=== PATIENT | female | born 1955 | race Caucasian/White ===

== ENCOUNTER 2016-08-10 11:10 | Emergency (ER) | payer OTHER ==
[~2016-08-10] VITALS: Ht 175.3 cm; Wt 113.6 kg
[~2016-08-10 11:10] MED LIST: ASPI1TAB69 PO; ATEN50TA PO; ATOR40TA16 PO; HYDR12.57 PO; LISI40TA PO; RANI150C PO
[2016-08-10 11:40] VITALS: BP 141/81; PULSE 65; RESP 16; TEMP 98.7; O2SAT 96
--- NOTE | 2016-08-10 12:36 | PD ---
HPI Chief Complaint: Fall Time Seen by Provider: 12:35 Travel History International Travel<30 days: No Contact w/Intl Traveler<30days: No Traveled to known affect area: No History of Present Illness HPI 60-year-old female presents to the emergency Department with complaint of right knee pain and left ankle pain after tripping over a heightened piece of cement 6 days ago and falling. She says she twisted her left ankle and landed on her right knee. Denies hitting her head or loss of consciousness. Denies neck pain or back pain. Denies anticoagulants. Denies nausea, vomiting. Denies fever, chills. Has been icing, elevating, and using crutches for support. Woke up this morning with a burning sensation in her left ankle. Pain is aggravated with palpation, walking to both the knee and ankle. Took some Advil few days ago with minimal relief of pain. Denies paresthesias, loss of sensation to bilateral lower extremities. Reports decreased range of motion of both the knee and ankle secondary to pain and swelling. Denies allergies. History of hypertension. No other modifying factors or associated signs and symptoms. PFSH Past Medical History Arthritis: Yes (in hands) Asthma: No Autoimmune Disease: No Blood Disorders: No Heart Rhythm Problems: Yes (LBBB) Cancer: No Cardiovascular Problems: Yes High Cholesterol: Yes Chest Pain: Yes Congestive Heart Failure: No COPD: No Cerebrovascular Accident: No Endocrine: No Genitourinary: No Headaches: Yes Hypertension: Yes Immune Disorder: No Musculoskeletal: No Neurologic: Yes Psychiatric: No Reproductive: No Respiratory: Yes (pneumonia) Immunizations Current: Yes Migraines: Yes Tetanus Vaccination: < 5 Years Influenza Vaccination: No ?: Not Menopausal: Yes Past Surgical History Abdominal Surgery: No Body Medical Devices: TITANIUM STRAPS IN HEAD Cardiac Surgery: No Ear Surgery: No Endocrine Surgery: No Eye Surgery: No Genitourinary Surgery: No Gynecologic Surgery: No Neurologic Surgery: Yes (craniotomy 2004 menigioma ) Oral Surgery: No Pacemaker: No Thoracic Surgery: No Tonsillectomy: Yes Other Surgery: Yes (CAS BREAST BIOPSIES) Social History Alcohol Use: No Tobacco Use: No Substance Use: No Allergies-Medications (Allergen,Severity, Reaction): Coded Allergies: No Known Allergies (Unverified , 08/10/16) Reported Meds & Prescriptions Reported Meds & Active Scripts Active Ibuprofen 800 Mg Tab 800 Mg PO Q6HR PRN Lisinopril 40 Mg Tab 40 Mg PO DAILY Reported Aspirin 81 Mg Tabdr 81 Mg PO DAILY Hydrochlorothiazide 12.5 Mg Cap 12.5 Mg PO DAILY Atenolol 50 Mg Tab 50 Mg PO BID Review of Systems Except as stated in HPI: all other systems reviewed are Neg Physical Exam Narrative GENERAL: Well-nourished, well-developed female patient, in no acute distress SKIN: Warm and dry. HEAD: Atraumatic. Normocephalic. EYES: Pupils equal and round. No scleral icterus. No injection or drainage. ENT: Mucosa pink and moist. Airway patent. NECK: Trachea midline. CARDIOVASCULAR: Regular rate. RESPIRATORY: No accessory muscle use. GASTROINTESTINAL: Obese. MUSCULOSKELETAL: Right knee edematous and ecchymotic; without erythema; Full range of motion; flexion to 90; negative drawer test; knee joint stable; point tenderness to the patellar aspect; right lower extremity supple and non-tense with 2+ pedal pulses and sensory intact. Left ankle with point tenderness to the lateral malleolar zone; with edema and ecchymosis noted to the lateral aspect; no obvious deformity; left lower extremity supple and non-tense with 2+ pedal pulses and sensory intact. No obvious deformities. No clubbing. No cyanosis. NEUROLOGICAL: Awake and alert. Oriented 3. No obvious cranial nerve deficits. Motor grossly within normal limits. Normal speech. PSYCHIATRIC: Appropriate mood and affect; insight and judgment normal. Data Data Last Documented VS Vital Signs Date Time Temp Pulse Resp B/P Pulse Ox O2 Delivery O2 Flow Rate FiO2 08/10/16 11:40 98.7 65 16 141/81 96 Orders Ibuprofen (Motrin) (08/10/16 12:45) Ankle, Complete (Cit8uer) (08/10/16 12:36) Knee, Complete (4vws) (08/10/16 12:36) Ice/Cold Pack (08/10/16 12:36) [facility] Medical Decision Making Medical Screen Exam Complete: Yes Emergency Medical Condition: Yes Medical Record Reviewed: Yes Differential Diagnosis Fracture, dislocation, contusion, sprain Narrative Course 60-year-old female with right knee injury and left ankle injury after a mechanical fall 6 days ago. Denies hitting her head or loss of consciousness. Denies nausea, vomiting. On physical exam the patient is without raccoon eyes, chavis signs, rhinorrhea, or hemotympanum. I do not suspect open or depressed skull fracture, and the patient has no signs of basilar skull fracture. [facility] CT Head Injury Rule suggests a head CT is not necessary for this patient and clears the patient for head injury without imaging. Bilateral lower extremities are supple and non-tense with 2+ pedal pulses and sensory intact. Right knee x-ray and left ankle x-ray ordered. Ibuprofen administered in the ER. 1316: Left ankle x-ray concludes Small avulsed fragment off the lateral malleolus with soft tissue swelling. Right knee x-ray concludes No effusion, fracture or dislocation; mild osteoarthritis. Call placed to ortho. 1345: With Dr. Manuel, orthopedic surgeon, and he recommended a splint and crutches and no weightbearing and to follow-up in the office. [place] splint ordered. Crutches provided for support. Instructed patient to follow up with Dr. Manuel or orthopedic of choice by the end of the week and she verbalizes understanding and agreement. I offered the patient a prescription for narcotic pain medication and she declined at this time. Ibuprofen prescribed for home. Patient is medically cleared and stable for discharge. Discussed reasons to return to the emergency department. Instructed patient to follow up with primary care provider. Patient agrees with treatment plan. The patients vital signs are stable and the patient is stable for outpatient follow-up and treatment. Patient discharged home, stable and in no acute distress. Diagnosis Primary Impression: Fall Qualified Code: W19.XXXA - Fall, initial encounter Additional Impressions: Closed left ankle fracture Qualified Code: S82.892A - Closed left ankle fracture, initial encounter Contusion of right knee Qualified Code: S80.01XA - Contusion of right knee, initial encounter Referrals: Cameron Manuel MD Orthopaedic Surgeon Primary Care Physician Patient Instructions: Ankle Fracture (ED), Contusion in Adults (ED), Crutch Instructions (ED), Fall Prevention (ED), General Instructions Departure Forms: Tests/Procedures, Work Release Enter return to work date: Aug 17, 2016 Additional Instructions: Tylenol or ibuprofen as directed and as needed for pain and inflammation Rest, ice, compress, and elevate extremity to decrease pain and inflammation Splint for support; do not remove splint to the follow-up with orthopedic Crutches for support Avoid aggravating activity; increase activity as tolerated Follow-up with primary care provider Follow-up with orthopedic surgeon by the end of the week; Dr. Manuel's information is provided in her discharge instructions; or follow up with orthopedic of your choice Return to the emergency department immediately with worsening symptoms Med/Other Pt SpecificInfo: Prescription(s) given Scripts Ibuprofen 800 Mg Hox433 Mg PO Q6HR PRN (PAIN) #30 TAB Ref 0 Prov:Celine Ferrer 08/10/16 Disposition: 01 DISCHARGE HOME Condition: Stable Celine Ferrer Aug 10, 2016 12:36
[2016-08-10] MEDS ORDERED: IBUPROFEN 800 MG TAB PO ONE (12:45)
--- NOTE | 2016-08-10 13:11 | RADHPO ---
EXAM DATE/TIME: 08/10/2016 12:54 [facility] COMPARISON: No previous studies available for comparison. INDICATIONS : Fall, left lateral ankle pain and swelling. MEDICAL HISTORY : None. SURGICAL HISTORY : None. ENCOUNTER: Initial ACUITY: 4 - 6 days PAIN SCORE: 7/10 LOCATION: Left lateral ankle FINDINGS: Bone density is normal. There is a small chipped fragment off the tip of the lateral malleolus with m ild soft tissue swelling. Plantar and posterior calcaneal spurs. CONCLUSION: Small avulsed fragment off the lateral malleolus with soft tissue swelling. Julian Andrade MD on August 10, 2016 at 13:09 Board Certified Radiologist. This report was verified electronically.
--- NOTE | 2016-08-10 13:11 | RADHPO ---
EXAM DATE/TIME: 08/10/2016 12:56 [facility] COMPARISON: No previous studies available for comparison. INDICATIONS : Fall, right ankle pain and bruising. MEDICAL HISTORY : None. SURGICAL HISTORY : None. ENCOUNTER: Initial ACUITY: 4 - 6 days PAIN SCORE: 7/10 LOCATION: Right knee FINDINGS: Mild spurring of the tibial spines. Mild narrowing of the medial tibiofemoral compartment. No effusio n, fracture or dislocation. Normal bone density. CONCLUSION: Mild osteoarthritis. Julian Andrade MD on August 10, 2016 at 13:09 Board Certified Radiologist. This report was verified electronically.
[2016-08-10] MEDS ORDERED: IBUP800T23 PO (13:49)
[2016-08-14] MEDS ORDERED: ZANTTAB PO (16:49)
[2016-10-20] MEDS ORDERED: HYDR12.57 PO (14:47)
[2016-12-24] MEDS ORDERED: ZANTTAB PO (11:00)
[2017-01-19] MEDS ORDERED: LISI40TA PO (11:18)
[2017-02-01] MEDS ORDERED: ATEN100T PO (15:29)
== END 2016-08-10 14:35 | disposition home or self-care (01) ==
LOC: PHEFT 11:10
DX: S82.62XA Displaced fracture of lateral malleolus of left fibula, initial encounter for closed fracture (principal); S80.01XA Contusion of right knee, initial encounter; W18.09XA Striking against other object with subsequent fall, initial encounter
CPT/HCPCS: 29515; 73564; 73610; 99283; E0113

== ENCOUNTER 2018-01-11 20:21 | Inpatient (IN) | payer OTHER ==
[~2018-01-11] VITALS: Ht 175.3 cm; Wt 118.7 kg
[~2018-01-11 20:21] MED LIST changes: +ATEN100T PO; -ATEN50TA PO; -ATOR40TA16 PO; +IBUP1TAB7 PO; -RANI150C PO; +ZANTTAB PO
[2018-01-11 20:25] VITALS: BP 202/94; PULSE 75; RESP 16; RESP 18; TEMP 98.7; O2SAT 98; O2SAT 99
[2018-01-11 20:34] VITALS: BP 192/96; PULSE 66; RESP 18; O2SAT 98
[2018-01-11 20:37] VITALS: BP 188/85; PULSE 64; RESP 18; O2SAT 98
[2018-01-11] MEDS ORDERED: ASPIRIN 325 MG TAB PO ONE (20:45)
[2018-01-11] MEDS ORDERED: LORazepam 2 MG/ML VIAL IV PUSH ONE (20:45)
[2018-01-11 20:47] LABS: AUTOMATED NEUTROPHIL # 4.6 TH/MM3 (1.8-7.7); BASOPHIL # 0.1 TH/MM3 (0-0.2); BASOPHIL % 1.4 % (0.0-2.0); EOSINOPHIL # 0.1 TH/MM3 (0-0.4); EOSINOPHIL % 1.3 % (0.0-4.0); HEMATOCRIT 44.3 % (35.0-46.0); HEMOGLOBIN 14.2 GM/DL (11.6-15.3); LYMPH % 33.9 % (9.0-44.0); MEAN CORPUSCULAR HEMOGLOBIN 29.9 PG (27.0-34.0); MEAN CORPUSCULAR HGB CONC 32.1 % (32.0-36.0); MEAN PLATELET VOLUME 9.1 FL (7.0-11.0); MONO % 10.7 % (0.0-8.0); MONOCYTE # 0.9 TH/MM3 (0-0.9); NEUT % 52.7 % (16.0-70.0); PLATELET COUNT 303 TH/MM3 (150-450); RED BLOOD COUNT 4.76 MIL/MM3 (4.00-5.30); RED CELL DISTRIBUTION WIDTH 11.5 % (11.6-17.2); WHITE BLOOD COUNT 8.7 TH/MM3 (4.0-11.0)
[2018-01-11 20:54] LABS: CHLORIDE 105 MEQ/L (98-107); SODIUM (NA) 140 MEQ/L (136-145)
[2018-01-11] MEDS: SODIUM CHLORIDE 0.9% FLUSH 10 ML FLUSH IVF PRN ×2 (20:55→21:37)
--- NOTE | 2018-01-11 20:55 | PD ---
HPI Chief Complaint: TIA/ CVA Time Seen by Provider: 20:34 Travel History International Travel<30 days: No Contact w/Intl Traveler<30days: No History of Present Illness HPI 62-year-old female with history of hypertension and meningioma status post resection 14 years ago presented to the ER for evaluation of possible TIA. 40 minutes prior to arrival to the ER patient was at home and noticed right arm weakness and right facial drooping that lasted less than 2 minutes and went away on its own. Patient was sitting down when she noticed her symptoms, had her call the paramedics. Patient has history of meningioma was resected and follows up with serial screening CAT scans regularly. Patient did not have any symptoms prior to this attack, she did not feel dizzy or headache, she has no sweating or palpitations. Patient has no residual neurological symptoms at the present time denies any weakness or sensory loss or slurred speech. Patient had elevated blood pressure when she was picked up by the paramedics and blood pressure was 190/92 and blood sugar was 75. Patient states that she had a history of TIA in the past about 10 years ago and she had extensive workup for and states that was "normal". PFSH Past Medical History Arthritis: Yes (in hands) Asthma: No Autoimmune Disease: No Blood Disorders: No Heart Rhythm Problems: Yes (LBBB) Cancer: No Cardiovascular Problems: Yes High Cholesterol: Yes Chest Pain: Yes Congestive Heart Failure: No COPD: No Cerebrovascular Accident: No Endocrine: No Genitourinary: No Headaches: Yes Hypertension: Yes Immune Disorder: No Musculoskeletal: No Neurologic: Yes Psychiatric: No Reproductive: No Respiratory: Yes (pneumonia) Immunizations Current: Yes Migraines: Yes Menopausal: Yes Past Surgical History Abdominal Surgery: No Body Medical Devices: TITANIUM STRAPS IN HEAD Cardiac Surgery: No Ear Surgery: No Endocrine Surgery: No Eye Surgery: No Genitourinary Surgery: No Gynecologic Surgery: No Neurologic Surgery: Yes (craniotomy 2004 menigioma ) Oral Surgery: No Pacemaker: No Thoracic Surgery: No Tonsillectomy: Yes Other Surgery: Yes (CAS BREAST BIOPSIES) Social History Alcohol Use: No Tobacco Use: No Substance Use: No Allergies-Medications (Allergen,Severity, Reaction): Coded Allergies: No Known Allergies (Unverified Allergy, Unknown, 01/11/18) Reported Meds & Prescriptions Reported Meds & Active Scripts Active Atenolol 100 Mg Tab 50 Mg PO BID 1/2 tablet a.m. and p.m. Lisinopril 40 Mg Tab 40 Mg PO DAILY Hydrochlorothiazide 12.5 Mg Cap 12.5 Mg PO DAILY Reported Aspirin 81 Mg Chew 81 Mg CHEW DAILY Review of Systems Except as stated in HPI: all other systems reviewed are Neg Physical Exam Narrative GENERAL: Alert oriented 3, answers questions properly. SKIN: Focused skin assessment warm/dry. HEAD: Atraumatic. Normocephalic. EYES: Pupils equal and round. No scleral icterus. No injection or drainage. ENT: No nasal bleeding or discharge. Mucous membranes pink and moist. NECK: Trachea midline. No JVD. CARDIOVASCULAR: Regular rate and rhythm. No murmur appreciated. RESPIRATORY: No accessory muscle use. Clear to auscultation. Breath sounds equal bilaterally. GASTROINTESTINAL: Abdomen soft, non-tender, nondistended. Hepatic and splenic margins not palpable. MUSCULOSKELETAL: No obvious deformities. No clubbing. No cyanosis. No edema. NEUROLOGICAL: Alert, answer questions correctly, follows commands correctly, normal eye movements without gaze paralysis, normal visual scherer, no facial paralysis, no left or right arm drift, no right or left leg drift, no ataxia, no sensory or motor loss, language intact without aphasia or slurred speech. Cranial nerves II to XII grossly intact without any deficits, motor and sensory function intact, reflexes equal bilaterally. PSYCHIATRIC: Appropriate mood and affect; insight and judgment normal. Data Data Last Documented VS Vital Signs Date Time Temp Pulse Resp B/P (MAP) Pulse Ox O2 Delivery O2 Flow Rate FiO2 01/11/18 20:40 75 18 98 Room Air 01/11/18 20:37 188/85 (119) 01/11/18 20:25 98.7 Orders Orders Electrocardiogram (01/11/18 20:34) Prothrombin Time / Inr (Pt) (01/11/18 20:34) Act Partial Throm Time (Ptt) (01/11/18 20:34) Complete Blood Count With Diff (01/11/18 20:34) Comprehensive Metabolic Panel (01/11/18 20:34) Creatine Kinase (Cpk) (01/11/18 20:34) Troponin I (01/11/18 20:34) Urinalysis - C+S If Indicated (01/11/18 20:34) Ct Brain W/O Iv Contrast(Rout) (01/11/18 20:34) Chest, Single Ap (01/11/18 20:34) Ecg Monitoring (01/11/18 20:34) Iv Access Insert/Monitor (01/11/18 20:34) Oximetry (01/11/18 20:34) Aspirin (Aspirin) (01/11/18 20:45) Sodium Chloride 0.9% Flush (Ns Flush) (01/11/18 20:45) Lorazepam Inj (Ativan Inj) (01/11/18 20:45) Ondansetron Inj (Zofran Inj) (01/11/18 21:45) Place In Observation (01/11/18 ) Vital Signs (Adult) Q2HX12,Q4H (01/11/18 21:49) Nih Stroke Scale - Nihss .Daily (01/11/18 21:49) Neuro Checks Q2HX12,Q4H (01/11/18 21:49) Notify Dr: Other (01/11/18 21:49) Remove Urinary Catheter .ONCE (01/11/18 21:49) Ot Request For Service (01/11/18 21:49) Pt Request For Service (01/11/18 21:49) Case Management Consult (01/11/18 ) Activity Oob Ad Ary (01/11/18 21:49) Nursing Bedside Swallow Assess .ONCE (01/11/18 21:49) Scd Bilateral/Knee High RAGINI.QSHIFT (01/11/18 21:49) Complete Blood Count With Diff (01/12/18 06:00) Hemoglobin (Hgb) A1c (01/11/18 21:49) Basic Metabolic Panel (Bmp) (01/12/18 06:00) Lipid Profile (01/12/18 06:00) ^ Hold Medication (01/11/18 21:49) Consult Neurology (01/11/18 ) Sodium Chloride 0.9% Flush (Ns Flush) (01/12/18 09:00) Sodium Chloride 0.9% Flush (Ns Flush) (01/11/18 22:00) Aspirin (Aspirin) (01/12/18 09:00) Bedside Glucose RAGINI.CSUGAR (01/11/18 21:49) ^ Discontinue Insulin Orders (01/11/18 21:49) Insulin Aspart Supplemtl Scale (Novolog (01/12/18 08:00) Dextrose 50% In Julio (Vial) Inj (D50w (Vi (01/11/18 22:00) Glucagon Inj (Glucagon Inj) (01/11/18 22:00) Roast Master / Telemetry RAGINI.Q8H (01/11/18 21:49) Consult Stroke Navigator (01/11/18 ) Admit Order (Ed Use Only) (01/11/18 21:50) Us Carotid Arteries Comp Bilat (01/12/18 ) Mra Brain W/O Contrast (Cow) (01/12/18 ) Mri Brain W&W/O Contrast (01/12/18 ) Labs Laboratory Tests Test 01/11/18 20:30 White Blood Count 8.7 TH/MM3 Red Blood Count 4.76 MIL/MM3 Hemoglobin 14.2 GM/DL Hematocrit 44.3 % Mean Corpuscular Volume 93.0 FL Mean Corpuscular Hemoglobin 29.9 PG Mean Corpuscular Hemoglobin Concent 32.1 % Red Cell Distribution Width 11.5 % Platelet Count 303 TH/MM3 Mean Platelet Volume 9.1 FL Neutrophils (%) (Auto) 52.7 % Lymphocytes (%) (Auto) 33.9 % Monocytes (%) (Auto) 10.7 % Eosinophils (%) (Auto) 1.3 % Basophils (%) (Auto) 1.4 % Neutrophils # (Auto) 4.6 TH/MM3 Lymphocytes # (Auto) 3.0 TH/MM3 Monocytes # (Auto) 0.9 TH/MM3 Eosinophils # (Auto) 0.1 TH/MM3 Basophils # (Auto) 0.1 TH/MM3 CBC Comment DIFF FINAL Differential Comment Prothrombin Time 10.3 SEC Prothromb Time International Ratio 1.0 RATIO Activated Partial Thromboplast Time 23.4 SEC Blood Urea Nitrogen 16 MG/DL Creatinine 0.78 MG/DL Random Glucose 93 MG/DL Total Protein 7.4 GM/DL Albumin 3.9 GM/DL Calcium Level 8.9 MG/DL Alkaline Phosphatase 100 U/L Aspartate Amino Transf (AST/SGOT) 20 U/L Alanine Aminotransferase (ALT/SGPT) 33 U/L Total Bilirubin 0.4 MG/DL Sodium Level 140 MEQ/L Potassium Level 3.2 MEQ/L Chloride Level 105 MEQ/L Carbon Dioxide Level 26.9 MEQ/L Anion Gap 8 MEQ/L Estimat Glomerular Filtration Rate 75 ML/MIN Total Creatine Kinase 49 U/L Troponin I LESS THAN 0.02 NG/ML MDM Medical Decision Making Medical Screen Exam Complete: Yes Emergency Medical Condition: Yes Differential Diagnosis TIA, CVA, intracranial malignancy, aneurysm, subarachnoid hemorrhage, hypertensive emergency. Narrative Course 62-year-old female with a past medical history of meningioma and a TIA in the past presents to the ER for right arm weakness and right facial drooping that lasted for about 2 minutes and resolved spontaneously prior to arrival to the ER. Patient had elevated blood pressure when she was picked up by the paramedics, initial physical examination upon arrival to the ER revealed NIH score of 0, she has elevated blood pressure here in the ER and appears anxious about her symptoms. Reexamination of the patient has no neurological symptoms but patient is nauseated, blood pressure is 205/92, CAT scan shows no hemorrhage or any acute findings, labs are within normal limits except for hypokalemia. Patient will be admitted for further evaluation, discussed the case with Dr. Del Toro who accepted the patient. Last [address] 01/11/182033 Signed Impressions: CONCLUSION: 1. No acute findings. Chest X-Ray 01/11/182033 Signed Impressions: CONCLUSION: Negative examination. Laboratory Tests Test 01/11/18 20:30 White Blood Count 8.7 TH/MM3 Red Blood Count 4.76 MIL/MM3 Hemoglobin 14.2 GM/DL Hematocrit 44.3 % Mean Corpuscular Volume 93.0 FL Mean Corpuscular Hemoglobin 29.9 PG Mean Corpuscular Hemoglobin Concent 32.1 % Red Cell Distribution Width 11.5 % Platelet Count 303 TH/MM3 Mean Platelet Volume 9.1 FL Neutrophils (%) (Auto) 52.7 % Lymphocytes (%) (Auto) 33.9 % Monocytes (%) (Auto) 10.7 % Eosinophils (%) (Auto) 1.3 % Basophils (%) (Auto) 1.4 % Neutrophils # (Auto) 4.6 TH/MM3 Lymphocytes # (Auto) 3.0 TH/MM3 Monocytes # (Auto) 0.9 TH/MM3 Eosinophils # (Auto) 0.1 TH/MM3 Basophils # (Auto) 0.1 TH/MM3 CBC Comment DIFF FINAL Differential Comment Prothrombin Time 10.3 SEC Prothromb Time International Ratio 1.0 RATIO Activated Partial Thromboplast Time 23.4 SEC Blood Urea Nitrogen 16 MG/DL Creatinine 0.78 MG/DL Random Glucose 93 MG/DL Total Protein 7.4 GM/DL Albumin 3.9 GM/DL Calcium Level 8.9 MG/DL Alkaline Phosphatase 100 U/L Aspartate Amino Transf (AST/SGOT) 20 U/L Alanine Aminotransferase (ALT/SGPT) 33 U/L Total Bilirubin 0.4 MG/DL Sodium Level 140 MEQ/L Potassium Level 3.2 MEQ/L Chloride Level 105 MEQ/L Carbon Dioxide Level 26.9 MEQ/L Anion Gap 8 MEQ/L Estimat Glomerular Filtration Rate 75 ML/MIN Total Creatine Kinase 49 U/L Troponin I LESS THAN 0.02 NG/ML Diagnosis Primary Impression: TIA (transient ischemic attack) Qualified Codes: G45.9 - Transient cerebral ischemic attack, unspecified Admitting Information Admitting Physician Requests: Admit Scripts Levofloxacin (Levofloxacin) 250 Mg Tablet 250 MG PO DAILY for Infection for 3 Days, #3 TAB 0 Refills Prov: Rick Domingo 01/13/18 Aspirin (Px Aspirin) 325 Mg Tab 325 MG PO DAILY for TIA, #30 TAB Prov: Rick Domingo 01/13/18 Atorvastatin (Atorvastatin) 40 Mg Tab 40 MG PO HS for Hyperlipidemia, #30 TAB Prov: Rick Domingo 01/13/18 Condition: Stable Marc Salomon MD Jan 11, 2018 20:55
[2018-01-11 20:57] LABS: CALCIUM 8.9 MG/DL (8.5-10.1)
[2018-01-11 20:58] LABS: ALBUMIN 3.9 GM/DL (3.4-5.0); BICARBONATE 26.9 MEQ/L (21.0-32.0); BLOOD UREA NITROGEN 16 MG/DL (7-18); GLUCOSE,RANDOM 93 MG/DL (74-106)
[2018-01-11] MEDS ORDERED: ASPI-516 CHEW (20:58)
[2018-01-11 21:01] LABS: ALT (GPT) 33 U/L (10-53); AST (GOT) 20 U/L (15-37); CREATININE 0.78 MG/DL (0.50-1.00); GLOMERULAR FILTRATION RATE 75 ML/MIN (>89); PROTHROMBIN TIME - PATIENT 10.3 SEC (9.8-11.6)
[2018-01-11 21:03] LABS: TOTAL BILIRUBIN ADULT 0.4 MG/DL (0.2-1.0); TOTAL PROTEIN 7.4 GM/DL (6.4-8.2)
[2018-01-11 21:04] LABS: ALKALINE PHOSPHATASE 100 U/L (45-117)
[2018-01-11 21:06] LABS: TROPONIN I LESS THAN 0.02 NG/ML (0.02-0.05)
--- NOTE | 2018-01-11 21:29 | RADRPT ---
EXAM DATE: 01/11/2018 9:25 PM EDT AGE/SEX: 62 years / Female INDICATIONS: Right side weakness. CLINICAL DATA: This is the patient's initial encounter. Patient reports that signs and symptoms have been present for 1 day and indicates a pain score of 0/10. MEDICAL/SURGICAL HISTORY: Cerebrovascular disease. Cardiovascular disease. Craniotomy. RADIATION DOSE: 54.48 CTDI (mGy) [place] [facility] [place]13/2013. . TECHNIQUE: CT of the head without contrast. Using automated exposure control and adjustment of the mA and/or kV according to patient size, radiation dose was kept as low as reasonably achievable to ob tain optimal diagnostic quality images. FINDINGS: Encephalomalacia in the high left posterior frontal and parietal region identified near the vertex. T here is previous left parietal craniotomy. There are no fractures. No signs of acute infarct, intracr anial hemorrhage, or mass. CONCLUSION: 1. No acute findings. Electronically signed by: Julian Andrade MD 01/11/2018 9:27 PM EDT
--- NOTE | 2018-01-11 21:37 | RADRPT ---
EXAM DATE: 01/11/2018 9:32 PM EDT AGE/SEX: 62 years / Female INDICATIONS: Right sided weakness/numbness and shortness of breath. CLINICAL DATA: This is the patient's initial encounter. Patient reports that signs and symptoms have been present for 1 day and indicates a pain score of 0/10. MEDICAL/SURGICAL HISTORY: Hypertension. None. COMPARISON: [facility], CHEST SINGLE AP, 04/27/2016. . FINDINGS: A single AP view of the chest demonstrates the lungs to be symmetrically aerated without evidence of mass, infiltrate or effusion. The cardiomediastinal contours are unremarkable. Osseous structures a re intact. CONCLUSION: Negative examination. Electronically signed by: Julian Andrade MD 01/11/2018 9:36 PM EDT
[2018-01-11] MEDS ORDERED: ONDANSETRON HCL 4 MG/2 ML VIAL IV PUSH ONE (21:45)
[2018-01-11] MEDS ORDERED: SODIUM CHLORIDE 0.9% FLUSH 10 ML FLUSH IV FLUSH PRN (22:00)
[2018-01-11] MEDS ORDERED: GLUCAGON 1 MG/ML VIAL OTHER PRN (22:00)
[2018-01-11] MEDS ORDERED: DEXTROSE 50% IN WATER 50 ML VIAL(D50) IV PUSH PRN (22:00)
[2018-01-11 22:10] VITALS: BP 167/63; PULSE 70; RESP 14; O2SAT 93
[2018-01-11 22:40] VITALS: PULSE 67
[2018-01-11 22:45] VITALS: BP 168/77; PULSE 66; RESP 20; TEMP 97.6; O2SAT 100
[2018-01-12 03:50] VITALS: BP 178/73; PULSE 66; RESP 18; TEMP 97.7; O2SAT 98
[2018-01-12 04:00] VITALS: BP 163/98; PULSE 92; RESP 20; TEMP 97.9; O2SAT 97
[2018-01-12 06:38] LABS: AUTOMATED NEUTROPHIL # 6.1 TH/MM3 (1.8-7.7); BASOPHIL % 0.3 % (0.0-2.0); EOSINOPHIL % 0.3 % (0.0-4.0); HEMATOCRIT 40.6 % (35.0-46.0); HEMOGLOBIN 13.7 GM/DL (11.6-15.3); LYMPHOCYTE # 1.6 TH/MM3 (1.0-4.8); MEAN CELL VOLUME 94.7 FL (80.0-100.0); MEAN CORPUSCULAR HGB CONC 33.8 % (32.0-36.0); MEAN PLATELET VOLUME 9.2 FL (7.0-11.0); MONO % 5.6 % (0.0-8.0); MONOCYTE # 0.5 TH/MM3 (0-0.9); NEUT % 73.8 % (16.0-70.0); PLATELET COUNT 246 TH/MM3 (150-450); RED BLOOD COUNT 4.29 MIL/MM3 (4.00-5.30); RED CELL DISTRIBUTION WIDTH 12.4 % (11.6-17.2); WHITE BLOOD COUNT 8.2 TH/MM3 (4.0-11.0)
[2018-01-12 06:55] LABS: CHLORIDE 106 MEQ/L (98-107); SODIUM (NA) 141 MEQ/L (136-145)
[2018-01-12 06:59] LABS: CALCIUM 8.6 MG/DL (8.5-10.1)
[2018-01-12 07:00] LABS: BICARBONATE 27.1 MEQ/L (21.0-32.0); BLOOD UREA NITROGEN 15 MG/DL (7-18); GLUCOSE,RANDOM 102 MG/DL (74-106)
[2018-01-12 07:03] LABS: CREATININE 0.63 MG/DL (0.50-1.00); GLOMERULAR FILTRATION RATE 96 ML/MIN (>89)
[2018-01-12 07:50] VITALS: BP 144/67; PULSE 63; RESP 18; TEMP 96.2; O2SAT 95
[2018-01-12] MEDS: INSULIN ASPART SUPPLEMENTAL SCALE SQ SCH ×4 (08:00→21:00)
--- NOTE | 2018-01-12 08:24 | HHI.HP ---
HPI Service [facility] Primary Care Physician Sheng Zarate MD Admission Diagnosis TIA, HYPERTENSIVE URGENCY. Diagnoses: (1) TIA (transient ischemic attack) Diagnosis: Principal (2) Hypertensive urgency Diagnosis: Principal Chief Complaint: Right arm weakness, slurred speech, visual disturbance Travel History International Travel<30 Days: No Contact w/Intl Traveler <30 Da: No Traveled to Known Affected Are: No History of Present Illness 62-year-old female with known history of hypertension, TIA, meningioma removed 14 years ago, hyperlipidemia who presented the hospital because of transient neurological symptoms. Patient states that she was in a normal state of health until 7 PM last night when she was sitting at her desk trying to do some work when she had sudden onset of not been able to use her right arm. She states that coordination with off that she was not able to grasp or reach for what she was intended for. She try to call out for her when she noticed that she had garbled speech as well as she was drooling down the right side of her lip. She indicated that she also had some visual disturbances with difficulty in focusing. States that symptoms lasted for a couple minutes and resolved. She is back to her baseline without any symptoms. Patient came to emergency department for evaluation and found to have accelerated hypertension. Initial workup did not indicate any acute abnormality. Is recommended that the patient be observed in the hospital for further evaluation and management. Patient denies any paresthesia or paralysis. No lower extremity involvement. Review of Systems Eyes: COMPLAINS OF: Blurred vision Neurologic: COMPLAINS OF: Localized weakness, Speech Problems Except as stated in HPI: all other systems reviewed are Neg Past Family Social History Past Medical History Hypertension's Hyperlipidemia History of meningioma Past Surgical History Tonsillectomy Bilateral breast biopsies Meningioma removal Reported Medications Reported Meds & Active Scripts Active Atenolol 100 Mg Tab 50 Mg PO BID 1/2 tablet a.m. and p.m. Lisinopril 40 Mg Tab 40 Mg PO DAILY Hydrochlorothiazide 12.5 Mg Cap 12.5 Mg PO DAILY Reported Aspirin 81 Mg Chew 81 Mg CHEW DAILY Allergies: Coded Allergies: No Known Allergies (Unverified Allergy, Unknown, 01/11/18) Family History Family history was reviewed and significant for father in his 80s from bone cancer. Mother with history of hypertension Social History Patient quit smoking 30 years ago, prior to that she smoked a pack of cigarettes a day since she was 18 years old. Denies any alcohol or illicit drug use Physical Exam Vital Signs Vital Signs Date Time Temp Pulse Resp B/P (MAP) Pulse Ox O2 Delivery O2 Flow Rate FiO2 01/12/18 04:00 97.9 92 20 163/98 (119) 97 01/11/18 22:45 97.6 66 20 168/77 (107) 100 01/11/18 22:40 67 01/11/18 22:35 01/11/18 22:10 70 14 167/63 (97) 93 Room Air 01/11/18 20:40 75 18 98 Room Air 01/11/18 20:37 64 18 188/85 (119) 98 Room Air 01/11/18 20:34 66 18 192/96 (128) 98 Room Air 01/11/18 20:25 98.7 75 16 202/94 (130) 99 01/11/18 20:25 18 98 Room Air Physical Exam GENERAL: Well-developed, well-nourished, in no acute distress. alert and orientated HEENT: Head is normocephalic without any lesions or masses noted. Facial features are symmetric. Eyes: Pupils equal round reactive to light. Extraocular muscles are intact. Conjunctivae were clear. Oropharyngeal: Pharynx without any erythema edema. Tongue is midline without deviation. Buccal mucosa is moist without any masses or lesions NECK: Supple without any masses. Trachea midline no deviation. No JVD, no bruits are appreciated CARDIAC: Regular rhythm, regular rate. S1/S2 are heard. No murmurs gallops or rubs. LUNGS: Clear to auscultation bilaterally. No wheeze, rhonchi or rales. No use of accessory muscles on inspiration or expiration. ABDOMEN: Soft, nontender. Nondistended. Bowel sounds heard in all 4 quadrants. No organomegaly or masses. Negative rebound, negative guarding EXTREMITIES: No edema, pulses are equal bilaterally. No cyanosis or clubbing NEUROLOGY: Mood and affect appear appropriate. Cranial nerves II through XII grossly intact. Muscle strength 5/5 in upper and lower extremities bilaterally. Deep tendon reflexes are 2+ in upper and lower extremities bilaterally. Laboratory Laboratory Tests Test 01/11/18 20:30 01/12/18 05:00 White Blood Count 8.7 8.2 Red Blood Count 4.76 4.29 Hemoglobin 14.2 13.7 Hematocrit 44.3 40.6 Mean Corpuscular Volume 93.0 94.7 Mean Corpuscular Hemoglobin 29.9 32.0 Mean Corpuscular Hemoglobin Concent 32.1 33.8 Red Cell Distribution Width 11.5 12.4 Platelet Count 303 246 Mean Platelet Volume 9.1 9.2 Neutrophils (%) (Auto) 52.7 73.8 Lymphocytes (%) (Auto) 33.9 20.0 Monocytes (%) (Auto) 10.7 5.6 Eosinophils (%) (Auto) 1.3 0.3 Basophils (%) (Auto) 1.4 0.3 Neutrophils # (Auto) 4.6 6.1 Lymphocytes # (Auto) 3.0 1.6 Monocytes # (Auto) 0.9 0.5 Eosinophils # (Auto) 0.1 0.0 Basophils # (Auto) 0.1 0.0 CBC Comment DIFF FINAL DIFF FINAL Differential Comment Prothrombin Time 10.3 Prothromb Time International Ratio 1.0 Activated Partial Thromboplast Time 23.4 Blood Urea Nitrogen 16 15 Creatinine 0.78 0.63 Random Glucose 93 102 Total Protein 7.4 Albumin 3.9 Calcium Level 8.9 8.6 Alkaline Phosphatase 100 Aspartate Amino Transf (AST/SGOT) 20 Alanine Aminotransferase (ALT/SGPT) 33 Total Bilirubin 0.4 Sodium Level 140 141 Potassium Level 3.2 3.3 Chloride Level 105 106 Carbon Dioxide Level 26.9 27.1 Anion Gap 8 8 Estimat Glomerular Filtration Rate 75 96 Total Creatine Kinase 49 Troponin I LESS THAN 0.02 Result Diagram: 01/12/18 0500 01/12/18 0500 Imaging Last Impressions Head CT 01/11/182033 Signed Impressions: CONCLUSION: 1. No acute findings. Chest X-Ray 01/11/182033 Signed Impressions: CONCLUSION: Negative examination. Caprini VTE Risk Assessment Caprini VTE Risk Assessment: Mod/High Risk (score >= 2) Caprini Risk Assessment Model Point Value = 1 Point Value = 2 Point Value = 3 Point Value = 5 Age 41-60 Minor surgery BMI > 25 kg/m2 Swollen legs Varicose veins or History of unexplained or recurrent spontaneous Oral contraceptives or hormone replacement Sepsis (< 1 month) Serious lung disease, including pneumonia (< 1 month) Abnormal pulmonary function Acute myocardial infarction Congestive heart failure (< 1 month) History of inflammatory bowel disease Medical patient at bed rest Age 61-74 Arthroscopic surgery Major open surgery (> 45 min) Laparoscopic surgery (> 45 min) Malignancy Confined to bed (> 72 hours) Immobilizing plaster cast Central venous access Age >= 75 History of VTE Family history of VTE Factor V Leiden Prothrombin [id number] Lupus anticoagulant Anticardiolipin antibodies Elevated serum homocysteine Heparin-induced thrombocytopenia Other congenital or acquired thrombophilia Stroke (< 1 month) Elective arthroplasty Hip, pelvis, or leg fracture Acute spinal cord injury (< 1 month) Prophylaxis Regimen Total Risk Factor Score Risk Level Prophylaxis Regimen 0-1 Low Early ambulation 2 Moderate Order ONE of the following: *Sequential Compression Device (SCD) *Heparin 5000 units SQ BID 3-4 Higher Order ONE of the following medications: *Heparin 5000 units SQ TID *Enoxaparin/Lovenox 40 mg SQ daily (WT < 150 kg, CrCl > 30 mL/min) *Enoxaparin/Lovenox 30 mg SQ daily (WT < 150 kg, CrCl > 10-29 mL/min) *Enoxaparin/Lovenox 30 mg SQ BID (WT < 150 kg, CrCl > 30 mL/min) AND/OR *Sequential Compression Device (SCD) 5 or more Highest Order ONE of the following medications: *Heparin 5000 units SQ TID (Preferred with Epidurals) *Enoxaparin/Lovenox 40 mg SQ daily (WT < 150 kg, CrCl > 30 mL/min) *Enoxaparin/Lovenox 30 mg SQ daily (WT < 150 kg, CrCl > 10-29 mL/min) *Enoxaparin/Lovenox 30 mg SQ BID (WT < 150 kg, CrCl > 30 mL/min) AND *Sequential Compression Device (SCD) Assessment and Plan Assessment and Plan Discoordination, visual disturbance, garbled speech, TIA versus CVA -CT scan of the brain did not indicate any acute abnormality -Obtain MRI of the brain, MRA of the brain, carotid ultrasound, echocardiogram -Obtain further laboratory studies to include sed rate, B12, folate, TSH, lipid panel -Patient does usually take baby aspirin at home, the ER did give full dose aspirin. Will continue full dose aspirin -Obtain PT/OT/ST evaluations -Neurological consultation has been requested -Continue permissive hypertension Hypertension, accelerated on presentation -Likely secondary to TIA -Continue permissive hypertension at this time, anticipate BP control starting later today once cleared by Neurology DVT prevention -Sequential compression devices Physician Certification 2 Midnight Certification Type: Admission for Inpatient Services Order for Inpatient Services The services are ordered in accordance with Medicare regulations or non- Medicare payer requirements, as applicable. In the case of services not specified as inpatient-only, they are appropriately provided as inpatient services in accordance with the 2-midnight benchmark. Estimated LOS (days): 2 days is the estimated time the patient will need to remain in the hospital, assuming treatment plan goals are met and no additional complications. Post-Hospital Plan: Not yet determined Problem Qualifiers (1) TIA (transient ischemic attack): Qualified Codes: G45.9 - Transient cerebral ischemic attack, unspecified Rick Domingo Jan 12, 2018 08:24
--- NOTE | 2018-01-12 08:50 | PD.CONS ---
History of Present Illness Service Neurology Consult Requested By Medical Team Reason for Consult TIA Primary Care Physician Sheng Zarate MD History of Present Illness 62 y/o female with past hx of HTN, TIA and meningioma, reports that she had episode of right sided facial droop and paresthesias, blurred vision and right arm/hand paresthesias and incoordination occurring last night. Event lasted for about 2 minutes. She was slightly tired and anxious after the event. No headache or nausea. She noted that when she tried to talk during the episode that she had difficulty getting the words out and that her said her speech was slurred. She could understand what her was saying. No hx of seizure. She had a TIA 10 yrs ago. She takes ASA 81mg daily and is on medication for her BP. She has not missed any of her ASA doses. Per chart BP was significantly elevated when Paramedics arrived. She denies any residual symptoms. She had meningioma resection in the past and follows with Dr. Morales. Reports that she still has small meningioma that could not be removed due to location but it has not grown in 14 yrs. Meningioma affected vision in the past. No fam hx of stroke or TIA. Her daughter has epilepsy (Malissa James) Review of Systems Constitutional: Negative except HPI Eye: Negative Except HPI ENMT: Negative except HPI Respiratory: Negative except HPI Cardiovascular: Negative except HPI Gastrointestinal: Negative except HPI Aneudy/Lymph: Negative except HPI Musculoskeletal: Negative except HPI Neurologic: Negative except HPI Psychiatric: Negative except HPI All other ROS: ROS reviewed as documented in chart (Malissa James) Past Family Social History Allergies: Coded Allergies: No Known Allergies (Unverified Allergy, Unknown, 01/11/18) Past Medical History HTN, meningioma, TIA Past Surgical History meningioma resection, tonsillectomy, hysterectomy Active Ordered Medications Current Medications Medications (Trade) Dose Ordered Sig/Tenisha Route Start Time Stop Time Status Last Admin (NS Flush) 2 ml UNSCH PRN IVF 01/11/18 20:45 01/11/18 21:37 (NS Flush) 2 ml BID IV FLUSH 01/12/18 09:00 (NS Flush) 2 ml UNSCH PRN IV FLUSH 01/11/18 22:00 (Aspirin) 325 mg DAILY PO 01/12/18 09:00 (NovoLOG SUPPLEMENTAL SCALE) 1 ACHS SQ 01/12/18 08:00 (D50w (Vial) Inj) 50 ml UNSCH PRN IV PUSH 01/11/18 22:00 (Glucagon Inj) 1 mg UNSCH PRN OTHER 01/11/18 22:00 Family History daughter has epilepsy, no fam hx of stroke or TIA Social History former smoker, smoked 2ppd x 10 yrs, stopped 30 yrs ago, she is a junior high school principal (Malissa James) Exam I&O / VS Vital Signs Date Time Temp Pulse Resp B/P (MAP) Pulse Ox O2 Delivery O2 Flow Rate FiO2 01/12/18 07:50 96.2 63 18 144/67 (92) 95 01/12/18 04:00 97.9 92 20 163/98 (119) 97 01/11/18 22:45 97.6 66 20 168/77 (107) 100 01/11/18 22:40 67 01/11/18 22:35 01/11/18 22:10 70 14 167/63 (97) 93 Room Air 01/11/18 20:40 75 18 98 Room Air 01/11/18 20:37 64 18 188/85 (119) 98 Room Air 01/11/18 20:34 66 18 192/96 (128) 98 Room Air 01/11/18 20:25 98.7 75 16 202/94 (130) 99 01/11/18 20:25 18 98 Room Air General: Alert and Oriented, No acute distress Eye: PERRL, EOMI Respiratory: Non-labored respirations Cardiology: Normal rate Musculoskeletal: ROM Neurologic: Alert, Oriented, Normal sensory, Normal motor, No focal defects, CN II-XII intact, Normal DTR's Psychiatric: Cooperative, Appropriate mood & affect, Normal judgement Exam Comments no drift or leg lag, no facial asymmetry, (Malissa James) Review/Management Diagnosis/Plan: (1) TIA (transient ischemic attack) ICD Codes: G45.9 - Transient cerebral ischemic attack, unspecified Status: Acute Plan: MRI, MRA, CUS, ECHO scheduled will check Lipid panel, goal LDL<70 continue telemetry will check EEG to rule out possible seizure due to hx of residual meningioma less likely seizure as no post ictal state if EEG negative would change ASA to Plavix (2) Hypertension ICD Codes: I10 - Hypertension Status: Chronic Plan: permissive hypertension (3) Hyperlipidemia ICD Codes: E78.5 - Hyperlipidemia Status: Acute Plan: check lipid panel goal LDL <70 (Malissa James) Daily Summary MD note pt d/w my PA-agree with above findings and impression and plan. agree asa 325mg qd w/u for tia in progress d/c planning and f/u in office post d/c. (Prabha Michaels MD) Problem Qualifiers (1) TIA (transient ischemic attack): Qualified Codes: G45.9 - Transient cerebral ischemic attack, unspecified (2) Hypertension: Qualified Codes: I10 - Essential (primary) hypertension Malissa James Jan 12, 2018 08:50 Prabha Michaels MD Jan 12, 2018 14:02
--- NOTE | 2018-01-12 08:53 | RADRPT ---
EXAM DATE: 01/12/2018 8:13 AM EDT AGE/SEX: 62 years / Female INDICATIONS: Transischemic attack. CLINICAL DATA: This is the patient's initial encounter. Patient reports that signs and symptoms have been present for 1 day and indicates a pain score of 0/10. MEDICAL/SURGICAL HISTORY: . TIA. Hypertension. Meningioma. . Craniotomy; meningioma resectio n. Bilateral breast biopsy. COMPARISON: No prior [facility] exams available for comparison. VELOCITY PARAMETERS: ICA/CCA Ratio: Right 1.5 , Left 1.1 ICA: Right 139 cm/sec, Left 91` cm/sec CCA: Right 90 cm/sec, Left 87 cm/sec ECA: Right 125 cm/sec, Left 106 cm/sec Vertebral: Right 46 cm/sec antegrade, Left 61 cm/sec antegrade FINDINGS: Right Carotid: No significant stenosis is visualized. The waveforms are within normal limits. Left Carotid: No significant stenosis is visualized. The waveforms are within normal limits. Other: None. CONCLUSION: No evidence of flow-limiting carotid stenosis. Electronically signed by: Del Tinajero MD 01/12/2018 8:52 AM EDT
[2018-01-12] MEDS: SODIUM CHLORIDE 0.9% FLUSH 10 ML FLUSH IV FLUSH SCH ×2 (09:24→22:08)
[2018-01-12] MEDS: ASPIRIN 325 MG TAB PO SCH (09:25)
[2018-01-12 10:38] LABS: CHOLESTEROL 190 MG/DL (120-200); TRIGLYCERIDES 64 MG/DL (42-150)
[2018-01-12 10:41] LABS: CHOLESTEROL/ HDL RATIO 4.36 RATIO; HDL CHOLESTEROL 43.5 MG/DL (40.0-60.0); LDL CHOLESTEROL 134 MG/DL (0-99)
[2018-01-12 11:04] LABS: FOLATE 13.5 NG/ML (3.1-17.5)
[2018-01-12 11:50] VITALS: BP 149/82; PULSE 66; RESP 18; TEMP 96.8; O2SAT 100
[2018-01-12 12:33] LABS: BILIRUBIN, URINE NEG (NEG); BLOOD, URINE NEG (NEG); GLUCOSE,URINE NEG (NEG); KETONE, URINE NEG (NEG); NITRITE,URINE NEG (NEG); URINE COLOR YELLOW (YELLW/STRAW); URINE LEUKOCYTE ESTERASE SMALL (NEG)
[2018-01-12 12:41] LABS: BACTERIA, URINE MOD /hpf; SQUAMOUS EPITHELIAL CELL URINE 0-5 /hpf (0-5); WHITE BLOOD CELL CLUMPS FEW
[2018-01-12] MEDS ORDERED: GADODIAMIDE PF 287 MG/ML 20 ML VIAL (for RAD MRI) IVCONTRAST ONE (14:19)
[2018-01-12 16:17] LABS: HEMOGLOBIN A1C 5.4 % (4.3-6.0)
--- NOTE | 2018-01-12 16:19 | RADRPT ---
EXAM DATE: 01/12/2018 4:08 PM EDT AGE/SEX: 62 years / Female INDICATIONS: CVA. Dizziness, blurred vision, slurred speech, right upper extremity weakness, and fac ial drooping. CLINICAL DATA: This is the patient's subsequent encounter. Patient reports that signs and symptoms h ave been present for 2 days and indicates a pain score of 0/10. MEDICAL/SURGICAL HISTORY: Hypertension. Meningioma. Craniotomy. COMPARISON: No prior exams available for comparison. TECHNIQUE: 3D [id number] MRA was performed. Source images, multiplanar STS MIP, and 3D volum e MIP reconstructions were reviewed. FINDINGS: There is excellent visualization of the major intracranial arteries out to the second-order branch ve ssels. A 2 mm saccular structure is seen associated with the left posterior communicating artery. The left posterior communicating artery is felt to be arising from the dome. There is no evidence for ve ssel truncation or stenosis, and no evidence for vascular malformation. CONCLUSION: 1. Study somewhat limited by motion artifact. 2. 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 Electronically signed by: Sung Larios MD 01/12/2018 4:18 PM EDT
--- NOTE | 2018-01-12 19:07 | EKG ---
Date Performed: 01/11/2018 Time Performed: 20:44:40 PTAGE: 62 years EKG: Sinus rhythm LEFT BUNDLE BRANCH BLOCK ABNORMAL ECG PREVIOUS TRACING : 04/27/2016 22.31 Since the previous tracing, no significant change noted DOCTOR: Kevin Hua Interpretating Date/Time 01/12/2018 19:05:57
--- NOTE | 2018-01-12 19:17 | RADRPT ---
EXAM DATE: 01/12/2018 3:05 PM EDT AGE/SEX: 62 years / Female INDICATIONS: TIA. Dizziness, blurred vision, slurred speech, right upper extremity weakness, and facial drooping. CLINICAL DATA: This is the patient's subsequent encounter. Patient reports that signs and symptoms h ave been present for 2 days and indicates a pain score of 0/10. MEDICAL/SURGICAL HISTORY: Hypertension. Meningioma. Craniotomy. Temporal coils placed. COMPARISON: CT brain 01/11/2018 and MRI of the brain from [facility] 02/26/2010. TECHNIQUE: Multiplanar, multisequence examination of the brain was performed without and with 20 ml O mniscan (gadodiamide) contrast as a single exam dose. FINDINGS: Cerebrum: Area of encephalomalacia involving the right occipital and parietal lobe posteriorly. An e xtra-axial enhancing mass is seen posteriorly within the midline obscuring partially the sagittal sin us. This measures 1.8 x 1.5 x 1.5 cm. This is slightly larger from the 2009 exam where it measured 1. 3 x 1.1 x 1.0 cm. The ventricles are normal for age. No evidence of midline shift, hemorrhage or acu te infarction. No extraaxial fluid collections are seen. The pituitary gland and suprasellar cister n are normal in configuration. White Matter: A few scattered small foci of high FLAIR signal abnormality involving the periventricu lar white matter of both cerebral hemispheres.. Posterior Fossa: The cerebellum and brainstem are intact. The 4th ventricle is midline. The cerebel lopontine angle is unremarkable. The cerebellar tonsils extend down to the foramen magnum do not ext end through it.. Diffusion Imaging: No focal areas of restricted diffusion are seen. No evidence of acute infarction . Extracranial: Prior posterior craniotomy. The visualized portions of the orbits and paranasal sinuse s are unremarkable. Post Contrast: No abnormal areas of parenchymal or dural enhancement. No evidence of blood-brain ba rrier breakdown. CONCLUSION: 1. No acute intracranial abnormality. 2. Enlarging extra-axial mass posteriorly within the midline consistent with a residual meningioma w hich is slightly larger from the 2010 exam. 3. Encephalomalacia involving the left occipital and parietal lobes. There is an overlying craniotom y. Electronically signed by: Sung Larios MD 01/12/2018 7:16 PM EDT
[2018-01-12 20:00] VITALS: BP 185/85; PULSE 65; RESP 20; TEMP 96.5; O2SAT 95
[2018-01-12] MEDS ORDERED: ATORVASTATIN 40 MG TAB PO SCH (21:00)
[2018-01-12 23:10] VITALS: PULSE 72
[2018-01-13] VITALS: BP 118/56; PULSE 79; RESP 20; TEMP 96.5; O2SAT 96
[2018-01-13 04:00] VITALS: BP 136/69; PULSE 62; RESP 20; TEMP 96.8; O2SAT 97
[2018-01-13 08:00] VITALS: BP 182/80; PULSE 68; RESP 16; TEMP 97.6; O2SAT 68
[2018-01-13] MEDS: INSULIN ASPART SUPPLEMENTAL SCALE SQ SCH (08:00)
[2018-01-13] MEDS ORDERED: HYDROCHLOROTHIAZIDE 12.5 MG CAP PO SCH (09:00)
[2018-01-13] MEDS ORDERED: ATENOLOL 50 MG TAB PO SCH (09:00)
[2018-01-13] MEDS: SODIUM CHLORIDE 0.9% FLUSH 10 ML FLUSH IV FLUSH SCH (09:46)
[2018-01-13] MEDS: LISINOPRIL 20 MG TAB PO SCH ×2 (09:46→09:47)
[2018-01-13] MEDS: ASPIRIN 325 MG TAB PO SCH (09:46)
--- NOTE | 2018-01-13 10:18 | HHI.DCPOC ---
Discharge Care Plan Diagnosis: (1) TIA (transient ischemic attack) Goals to Promote Your Health * To prevent worsening of your condition and complications * To maintain your health at the optimal level Directions to Meet Your Goals Take your medications as prescribed Follow your dietary instruction Follow activity as directed Keep your appointments as scheduled Take your immunizations and boosters as scheduled If your symptoms worsen call your PCP, if no PCP go to Urgent Care Center or Emergency Room Smoking is Dangerous to Your Health. Avoid second hand smoke Call the 24-hour hour crisis hotline for domestic abuse at Rick Domingo Jan 13, 2018 10:18
[2018-01-13] MEDS ORDERED: ASA325 PO (10:20)
[2018-01-13] MEDS ORDERED: ATOR40TA16 PO (10:20)
--- NOTE | 2018-01-13 11:04 | ECHRPT ---
Indication: CONCLUSIONS Normal left ventricular size. Wall thickness is measured at the upper limits of normal. The left ventricular systolic function is low normal with an estimated ejection fraction in the rang e of 50- 55%. Mild mitral valve regurgitation. Moderate aortic valve regurgitation. There is trace tricuspid valve regurgitation. The estimated pulmonary arterial pressure is 47 mmHg. Mild pulmonary valve regurgitation. . BP: 149 / 82 HR: Rhythm: Sinus MEASUREMENTS (Male / Female) Normal Values Technical Quality:Fair 2D ECHO LV Diastolic Diameter PLAX 5.2 cm 4.2 - 5.9 / 3.9 - 5.3 cm LV Systolic Diameter PLAX 4.1 cm IVS Diastolic Thickness 1.0 cm 0.6 - 1.0 / 0.6 - 0.9 cm LVPW Diastolic Thickness 1.0 cm 0.6 - 1.0 / 0.6 - 0.9 cm LV Relative Wall Thickness 0.4 RV Internal Dim ED PLAX 1.5 cm LVOT Diameter 1.8 cm Aortic Root Diameter 2.4 cm LA Systolic Diameter LX 3.8 cm 3.0 - 4.0 / 2.7 - 3.8 cm M-MODE AV Cusp Separation MM 1.9 cm DOPPLER AV Peak Velocity 200.5 cm/s AV Peak Gradient 16.1 mmHg AV Mean Gradient 8.0 mmHg AV Velocity Time Integral 44.4 cm AI Peak Velocity 488.0 cm/s AI Peak Gradient 95.3 mmHg AI Pressure Half Time 482.0 ms LVOT Peak Velocity 97.8 cm/s LVOT Peak Gradient 3.8 mmHg LVOT Velocity Time Integral 21.6 cm AV Area Cont Eq vti 1.2 cm AV Area Cont Eq pk 1.2 cm Mitral E Point Velocity 101.0 cm/s Mitral A Point Velocity 116.0 cm/s Mitral E to A Ratio 0.9 LV E' Lateral Velocity 7.8 cm/s Mitral E to LV E' Lateral Ratio 12.9 LV E' Septal Velocity 6.9 cm/s Mitral E to LV E' Septal Ratio 14.6 TR Peak Velocity 303.0 cm/s TR Peak Gradient 36.7 mmHg PV Peak Velocity 84.2 cm/s PV Peak Gradient 2.8 mmHg FINDINGS LEFT VENTRICLE Normal left ventricular size. Wall thickness is measured at the upper limits of normal. The left ventricular systolic function is low normal with an estimated ejection fraction in the rang e of 50- 55%. RIGHT VENTRICLE Normal right ventricular size and systolic function. LEFT ATRIUM The left atrial size is normal. RIGHT ATRIUM The right atrial size is normal. ATRIAL SEPTUM The interatrial septum not well visualized. AORTA The aortic root and proximal ascending aorta are normal in size on limited imaging. MITRAL VALVE Mild mitral valve regurgitation. AORTIC VALVE The aortic valve is not well visualized. Moderate aortic valve regurgitation. TRICUSPID VALVE There is trace tricuspid valve regurgitation. The estimated pulmonary arterial pressure is 47 mmHg. PULMONARY VALVE Mild pulmonary valve regurgitation. VESSELS The inferior vena cava was not well visualized. . PERICARDIUM No pericardial effusion. Tejas Kamara MD, FACC Edited by: sql database administrator sql database administrator (Electronically Signed) Final Date:13 January 2018 09:39 Amended: 13 January 2018 11:03
[2018-01-13] MEDS ORDERED: LEVO250T7 PO (11:29)
--- NOTE | 2018-01-13 11:50 | HHI.DS ---
Discharge Summary Admission Date Jan 11, 2018 at 21:53 Discharge Date: Jan 13, 2018 Admitting Diagnosis TIA, HYPERTENSIVE URGENCY. (1) TIA (transient ischemic attack) ICD Code: G45.9 - Transient cerebral ischemic attack, unspecified Diagnosis: Principal Status: Acute (2) Hypertensive urgency ICD Code: I10 - Essential (primary) hypertension Diagnosis: Principal Status: Acute Procedures ECHOCARDIOGRAM CONCLUSIONS Normal left ventricular size. Wall thickness is measured at the upper limits of normal. The left ventricular systolic function is low normal with an estimated ejection fraction in the range of 50- 55%. Mild mitral valve regurgitation. Moderate aortic valve regurgitation. There is trace tricuspid valve regurgitation. The estimated pulmonary arterial pressure is 47 mmHg. Mild pulmonary valve regurgitation. Brief History - From Admission 62-year-old female with known history of hypertension, TIA, meningioma removed 14 years ago, hyperlipidemia who presented the hospital because of transient neurological symptoms. Patient states that she was in a normal state of health until 7 PM last night when she was sitting at her desk trying to do some work when she had sudden onset of not been able to use her right arm. She states that coordination with off that she was not able to grasp or reach for what she was intended for. She try to call out for her when she noticed that she had garbled speech as well as she was drooling down the right side of her lip. She indicated that she also had some visual disturbances with difficulty in focusing. States that symptoms lasted for a couple minutes and resolved. She is back to her baseline without any symptoms. Patient came to emergency department for evaluation and found to have accelerated hypertension. Initial workup did not indicate any acute abnormality. Is recommended that the patient be observed in the hospital for further evaluation and management. Patient denies any paresthesia or paralysis. No lower extremity involvement. CBC/BMP: 01/12/18 0500 01/12/18 0500 Significant Findings Laboratory Tests Test 01/11/18 20:30 01/12/18 05:00 01/12/18 10:40 Red Cell Distribution Width 11.5 % (11.6-17.2) Monocytes (%) (Auto) 10.7 % (0.0-8.0) Activated Partial Thromboplast Time 23.4 SEC (24.3-30.1) Potassium Level 3.2 MEQ/L (3.5-5.1) 3.3 MEQ/L (3.5-5.1) Estimat Glomerular Filtration Rate 75 ML/MIN (>89) Troponin I LESS THAN 0.02 NG/ML Neutrophils (%) (Auto) 73.8 % (16.0-70.0) LDL Cholesterol 134 MG/DL (0-99) Urine Leukocyte Esterase SMALL (NEG) Urine WBC 25-49 /hpf (0-5) Urine WBC Clumps FEW (NONE) Urine Bacteria MOD /hpf (NONE) Imaging Last Impressions Head Magnetic Resonance Angiography 01/12/18 Signed Impressions: CONCLUSION: 1. Study somewhat limited by motion artifact. 2. 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 Carotid Artery Ultrasound 01/12/18 Signed Impressions: CONCLUSION: No evidence of flow-limiting carotid stenosis. Brain MRI 01/12/18 Signed Impressions: CONCLUSION: 1. No acute intracranial abnormality. 2. Enlarging extra-axial mass posteriorly within the midline consistent with a residual meningioma which is slightly larger from the 2010 exam. 3. Encephalomalacia involving the left occipital and parietal lobes. There is an overlying craniotomy. Head CT 01/11/182033 Signed Impressions: CONCLUSION: 1. No acute findings. Chest X-Ray 01/11/182033 Signed Impressions: CONCLUSION: Negative examination. PE at Discharge GENERAL: Well-developed, well-nourished, in no acute distress. alert and orientated HEENT: Head is normocephalic without any lesions or masses noted. Facial features are symmetric. Eyes: Pupils equal round reactive to light. Extraocular muscles are intact. Conjunctivae were clear. Oropharyngeal: Pharynx without any erythema edema. Tongue is midline without deviation. Buccal mucosa is moist without any masses or lesions NECK: Supple without any masses. Trachea midline no deviation. No JVD, no bruits are appreciated CARDIAC: Regular rhythm, regular rate. S1/S2 are heard. No murmurs gallops or rubs. LUNGS: Clear to auscultation bilaterally. No wheeze, rhonchi or rales. No use of accessory muscles on inspiration or expiration. ABDOMEN: Soft, nontender. Nondistended. Bowel sounds heard in all 4 quadrants. No organomegaly or masses. Negative rebound, negative guarding EXTREMITIES: No edema, pulses are equal bilaterally. No cyanosis or clubbing NEUROLOGY: Mood and affect appear appropriate. Cranial nerves II through XII grossly intact. Muscle strength 5/5 in upper and lower extremities bilaterally. Deep tendon reflexes are 2+ in upper and lower extremities bilaterally. Hospital Course 62-year-old female who originally presented the hospital because of a short episode of right arm discoordination, garbled speech, right-sided drooling , visual disturbance. Patient was seen in the emergency department and recommended hospitalization to rule out CVA. Full neurological workup was ascertained with CT of the brain which did not indicate any acute abnormality, MRI of the brain does indicate a mild enlargement of her previously known meningioma. MRA of the brain does show possible saccular aneurysm versus infundibulum associated with a left posterior communicating artery. Carotid ultrasound did not indicate any acute abnormality, echocardiogram was unremarkable for any etiology or source. PT/OT/ST evaluations were performed without any outpatient recommendations. Laboratory studies did indicate significant hyperlipidemia with LDL 134. Patient was started on Lipitor 40 mg daily. On presentation patient did have accelerated hypertension and that remained permissive until today when patient was started back on her home blood pressure medications. Patient has not had any recurrent symptoms since being in the hospital. Neurology did evaluate the patient and indicated increasing to a full dose aspirin. She did have an EEG performed however results are still pending. This was discussed with neurology who said that she can follow- up in outpatient setting, patient is clinically stable this time. We will plan discharge home accordingly with outpatient follow-up. Pt Condition on Discharge: Stable Discharge Disposition: Discharge Home Discharge Time: > 30 minutes Discharge Instructions DIET: Follow Instructions for: Heart Healthy Diet Speech Therapy-Diet Recommends: Regular Activities you can perform: Regular-No Restrictions Follow up Referrals: Neurology - 2 Weeks with Prabha Michaels MD PCP Follow-up - 1 Week New Medications: Levofloxacin (Levofloxacin) 250 Mg Tablet 250 MG PO DAILY for Infection for 3 Days, #3 TAB 0 Refills Aspirin (Px Aspirin) 325 Mg Tab 325 MG PO DAILY for TIA, #30 TAB Atorvastatin (Atorvastatin) 40 Mg Tab 40 MG PO HS for Hyperlipidemia, #30 TAB Continued Medications: Aspirin (Aspirin) 81 Mg Chew 81 MG CHEW DAILY, TAB 0 Refills Atenolol (Atenolol) 100 Mg Tab 50 MG PO BID for Blood Pressure Management, #90 TAB 2 Refills 1/2 tablet a.m. and p.m. Hydrochlorothiazide (Hydrochlorothiazide) 12.5 Mg Cap 12.5 MG PO DAILY, #90 CAP 3 Refills Lisinopril (Lisinopril) 40 Mg Tab 40 MG PO DAILY for Blood Pressure Management, #90 TAB 2 Refills Rick Domingo Jan 13, 2018 11:50
--- NOTE | 2018-01-14 14:06 | MG ---
cc: Joni Tim MD, PhD DATE OF STUDY: 01/12/2018 TEST NUMBER: [id number] TECHNIQUE: This is a 17-channel EEG. DESCRIPTION: The background rhythm reveals a symmetrical alpha rhythm, frequency is 8 Hz, amplitude is about 20-30 microvolts. During drowsiness, there is mild slowing in the theta range. There are no lateralizing features and no epileptiform features present. Photic stimulation was done in a stepwise fashion with a normal driving response. INTERPRETATION: Normal electroencephalogram. Joni Tim MD, PhD JULIA/MAKAYLA , 01:52 PM , 02:05 PM
== END 2018-01-13 12:26 | disposition home or self-care (01) | DRG 69 ==
LOC: PHED 20:21 → PHEDA 21:53 → PH3B 22:34
PROVIDERS: ADMIT Family Medicine; ATTEND Family Medicine
PROC: B246ZZZ Ultrasonography of Right and Left Heart (ICD-10-PCS; principal; 2018-01-12)
DX: G45.9 Transient cerebral ischemic attack, unspecified (principal); I10 Essential (primary) hypertension; I16.0 Hypertensive urgency; I44.7 Left bundle-branch block, unspecified; E87.6 Hypokalemia; I34.0 Nonrheumatic mitral (valve) insufficiency; I35.1 Nonrheumatic aortic (valve) insufficiency; I37.1 Nonrheumatic pulmonary valve insufficiency; E78.00 Pure hypercholesterolemia, unspecified; E78.5 Hyperlipidemia, unspecified; D32.0 Benign neoplasm of cerebral meninges; M19.90 Unspecified osteoarthritis, unspecified site; Z79.82 Long term (current) use of aspirin; Z79.899 Other long term (current) drug therapy; Z86.73 Personal history of transient ischemic attack (TIA), and cerebral infarction without residual deficits; Z86.011 Personal history of benign neoplasm of the brain; Z87.891 Personal history of nicotine dependence; Z82.49 Family history of ischemic heart disease and other diseases of the circulatory system
CPT/HCPCS: 70450; 70544; 70553; 71045; 80048; 80053; 80061; 81001; 82550; 82607; 82746; 82948; 83036; 84443; 84484; 85025; 85610; 85652; 85730; 86403; 87086; 93005; 93306; 93880; 95819; 96374; 96375; A9579; J2060; J2405